=== PATIENT | male | born 1985 | race Two or more races ===

== ENCOUNTER 2019-10-10 11:38 | Emergency (ER) | payer MEDICAID ==
[~2019-10-10] VITALS: Ht 162.6 cm; Wt 68.0 kg
[2019-10-10] MEDS ORDERED: HYDROcodone-ACET 7.5/325MG TAB PO ONE (14:00)
[2019-10-10 14:42] VITALS: BP 121/87
== END 2019-10-10 14:49 | disposition home or self-care (01) ==
LOC: ER 11:38
DX: S52.601A Unspecified fracture of lower end of right ulna, initial encounter for closed fracture (principal); F17.210 Nicotine dependence, cigarettes, uncomplicated; V89.2XXA Person injured in unspecified motor-vehicle accident, traffic, initial encounter; Y93.89 Activity, other specified; Y92.89 Other specified places as the place of occurrence of the external cause; Y99.8 Other external cause status
CPT/HCPCS: 29125; 73090

== ENCOUNTER 2021-10-13 14:00 | Emergency (ER) | payer MEDICAID, OTHER ==
[~2021-10-13] VITALS: Ht 180.3 cm; Wt 68.0 kg
[2021-10-13 14:00] VITALS: BP 153/115
[2021-10-13] MEDS ORDERED: ASPirin 81 mg TAB PO ONE (15:00)
[2021-10-13 15:15] LABS: Basophils # (auto) 0.2 10 ^3/uL (0-0.2); Basophils % (auto) 1.5 % (0.0-2.0); Eosinophils # (auto) 0 10 ^3/uL (0-0.8); Hematocrit 50.4 % (41.0-53.0); Hemoglobin 17.4 g/dL (13.5-17.5); Lymphocytes # (auto) 0.5 10 ^3/uL (0.4-5.4); Lymphocytes % (auto) 3.5 % (10.0-50.0); Mean Corpuscular Hemoglobin 31.6 pg (28.0-32.0); Mean Corpuscular Hgb Conc. 34.5 g/dL (32.0-36.0); Mean Corpuscular Volume 91.6 fL (80.0-100.0); Monocytes # (auto) 0.5 10 ^3/uL (0-1.3); Monocytes % (auto) 3.4 % (0.0-12.0); Neutrophils # (auto) 14.5 10 ^3/uL (1.6-8.6); Neutrophils % (auto) 91.6 % (37.0-80.0); Nucleated Red Blood Cells % 0.1 %; Red Cell Distribution Width 13.5 % (11.8-14.3); White Blood Cell 15.8 10^3/uL (4.4-10.8)
[2021-10-13 15:43] LABS: Alanine Aminotransferase 26 U/L (16-61); Alkaline Phosphatase 80 U/L (45-117); Anion Gap 12 (5-15); Aspartate Aminotransferase 40 U/L (15-37); BUN/Creatinine Ratio 8.9; Blood Urea Nitrogen 10 mg/dL (7-18); Calcium 9.4 mg/dL (8.5-10.1); Carbon Dioxide 23 mmol/L (21-32); Chloride 100 mmol/L (98-107); GFR African American 95 mL/min; GFR Non-African American 79 mL/min; Glucose 147 mg/dL (74-106); Potassium 4.6 mmol/L (3.5-5.1); Sodium 135 mmol/L (136-145)
[2021-10-13 15:44] LABS: Albumin 4.8 g/dL (3.4-5.0); Bilirubin, Total 1.5 mg/dL (0.2-1.0); Magnesium 1.9 mg/dL (1.6-2.6); Total Protein 9.3 g/dL (6.4-8.2)
== END 2021-10-13 20:47 | disposition left against medical advice (07) ==
LOC: ER 14:00
DX: R07.89 Other chest pain (principal); F17.210 Nicotine dependence, cigarettes, uncomplicated
CPT/HCPCS: 36415; 71046; 80053; 83735; 84484; 85025; 93005